=== PATIENT | male | born 1955 | race Caucasian/White ===

== ENCOUNTER → 2024-11-11 07:34 | Outpatient (BNVA) | payer MEDICARE, SELFPAY | PROVIDERS: Family Provider Internal Medicine; Visit Provider Specialist | DX: G43.711 Chronic migraine without aura, intractable, with status migrainosus (principal); Z95.2 Presence of prosthetic heart valve; G25.0 Essential tremor; J43.9 Emphysema, unspecified | CPT/HCPCS: 99204 ==

== ENCOUNTER → 2025-02-08 11:44 | Outpatient (BNVA) | payer MEDICARE, SELFPAY | PROVIDERS: Family Provider Internal Medicine; Visit Provider Specialist | DX: G43.711 Chronic migraine without aura, intractable, with status migrainosus (principal); R51.9 Headache, unspecified; Z95.2 Presence of prosthetic heart valve; G25.0 Essential tremor; J43.9 Emphysema, unspecified | CPT/HCPCS: 99213 ==

== ENCOUNTER → 2025-03-03 11:16 | Outpatient (BNVA) | payer MEDICARE, SELFPAY | PROVIDERS: Family Provider Internal Medicine; Visit Provider Specialist | DX: G43.711 Chronic migraine without aura, intractable, with status migrainosus (principal) | CPT/HCPCS: 64615; J9999 ==

== ENCOUNTER → 2025-06-08 10:21 | Outpatient (BNVA) | payer MEDICARE, SELFPAY | PROVIDERS: Family Provider Internal Medicine; Visit Provider Specialist | DX: G43.711 Chronic migraine without aura, intractable, with status migrainosus (principal) | CPT/HCPCS: 64615; J9999 ==

== ENCOUNTER → 2025-09-07 13:23 | Outpatient (BNVA) | payer MEDICARE, SELFPAY | PROVIDERS: Visit Provider Specialist | DX: G43.711 Chronic migraine without aura, intractable, with status migrainosus (principal) | CPT/HCPCS: 64615; J9999 ==